=== PATIENT | male | born 1955 | race Caucasian/White ===

== ENCOUNTER → 2018-08-24 10:33 | Outpatient (CLI) | payer OTHER, SELFPAY ==
[2018-08-24 11:43] LABS: Add Manual Diff / Slide Review NO; Basophils Absolute Auto 0 /uL (0-100); Basophils Percent Auto 0.8 % (0-2); Eosinophils Absolute Auto 100 /uL (0-450); Eosinophils Percent Auto 1.5 % (2-4); Hemoglobin 14.1 g/dL (13.5-17.5); Lymphocytes Absolute Auto 1000 /uL (1100-4500); Lymphocytes Percent Auto 23.4 % (25-40); Mean Corpuscular HGB Conc 33.7 % (30-36); Mean Corpuscular Hemoglobin 31.4 PG (26-34); Mean Corpuscular Volume 93.4 fL (80-100); Monocytes Absolute Auto 400 /uL (0-900); Monocytes Percent Auto 9.6 % (3-14); Neutrophils Absolute Auto 2900 /uL (1500-7000); Neutrophils Percent Auto 64.7 % (50-75); Platelet Count 177 X10^3/uL (150-400); Red Cell Distribution Width 13.9 % (11.6-14.8); White Blood Cell Count 4.4 X10^3/uL (4.5-11.0)
[2018-08-24 12:01] LABS: Alanine Aminotransferase 31 IU/L (21-72); Albumin 4.3 g/dL (3.5-5.0); Albumin Globulin Ratio 1.8 (1.0-2.8); Alkaline Phosphatase 43 U/L (38-126); Aspartate Aminotransferase 30 IU/L (17-59); BUN Creatinine Ratio 17.8 (6-22); Bilirubin Total 0.7 mg/dL (0.2-1.3); Blood Urea Nitrogen 16 mg/dL (9-20); Calcium 9.4 mg/dL (8.4-10.2); Carbon Dioxide 29 mmol/L (22-32); Chloride 104 mmol/L (98-107); Cholesterol 192 mg/dL (140-199); Estimated Glomerular Filt Rate > 60.0 mL/min (>60); Globulin 2.4 g/dL (1.7-4.1); Glucose 99 mg/dL (80-110); HDL Cholesterol 79 mg/dL (40-60); HEMOLYSIS < 15 (0-50); LDL Cholesterol Calculated 106 mg/dL (<100); Potassium 4.9 mmol/L (3.4-5.1); Sodium 141 mmol/L (137-145); Total Protein 6.7 g/dL (6.3-8.2); Triglycerides 37 mg/dL (35-150)
[2018-08-24 12:31] LABS: Prostate Specific Antigen 4.11 ng/mL (0.10-4.00)
[2018-08-24 12:50] LABS: Hep C Virus Ab w/Reflex Quant NEGATIVE s/c (NEGATIVE)
== END ==
PROVIDERS: PCP Family Medicine; Visit Provider Family Medicine
DX: E78.5 Hyperlipidemia, unspecified (principal); I44.7 Left bundle-branch block, unspecified; N40.0 Benign prostatic hyperplasia without lower urinary tract symptoms; Z95.0 Presence of cardiac pacemaker; Z11.59 Encounter for screening for other viral diseases; Z91.89 Other specified personal risk factors, not elsewhere classified
CPT/HCPCS: 36415; 80053; 80061; 84153; 85025; 86803

== ENCOUNTER 2018-10-23 06:30 | Day surgery (SDC) | payer OTHER, SELFPAY ==
[2018-10-23] VITALS (11 sets, daily range): BP systolic 92–128; BP diastolic 57–81; PULSE 59–66; RESP 8–17; TEMP 36.2–36.6; O2SAT 91–99; BMI 23.4
[2018-10-23] MEDS: SODIUM CHLORIDE 0.9% 1,000 ML 100 ML IV (07:30)
--- NOTE | 2018-10-23 07:30 | PM.HP.1 ---
History of Present Illness Date Patient Seen: 10/23/18 Time Patient Seen: 07:30 Chief complaint: Routine screening colonoscopy Narrative: Patient here for routine screening colonoscopy Patient History Medical History (Updated 10/23/18 @ 07:32 by Wesly Kramer MD) Enlarged prostate (Acute) Former smoker (Acute) Impaired vision (Acute) Surgical History (Updated 07/19/17 @ 06:03 by Stephon Bettencourt MD) History of tonsillectomy Presence of cardiac pacemaker Status post hernia repair Family History (Updated 07/28/15 @ 00:00 by Conversion Provider) Father Cancer Social History marital status: household members: spouse Smoking Status: Former smoker (QUIT 1978) alcohol intake: current (2+ A DAY ) substance use type: does not use Family & Social History Family History (Updated 07/28/15 @ 00:00 by Conversion Provider) Father Cancer Tobacco & Substance use: Smoking Status Former smoker alcohol intake current Meds Home Medications Medication Instructions Recorded Confirmed Type No Known Home Medications 08/15/18 08/15/18 History Allergies Allergy/AdvReac Type Severity Reaction Status Date / Time No Known Drug Allergies Allergy Verified 10/23/18 07:14 Review of Systems Review of Systems All systems reviewed & are unremarkable except as noted in HPI and below Exam Narrative Exam Narrative: General adult male in no acute distress alert and oriented Chest clear to auscultation bilaterally Cardiac regular rate and rhythm Abdomen soft nontender nondistended Extremities warm and well-perfused Assessment & Plan (1) Colonoscopy planned: Current visit: Yes Status: Acute Assessment & Plan narrative: 63-year-old male here for routine screening colonoscopy
--- NOTE | 2018-10-23 07:33 | PM.PREOP ---
Pre-operative Note Interval Note History & Physical reviewed/Exam performed by Physician: Yes Changes to H&P: No ASA Class (for procedural sedation): II
--- NOTE | 2018-10-23 08:44 | PM.OP.ENDO ---
Operative Date/Time/Diagnoses Date of procedure: 10/23/18 Time of procedure: 08:44 Pre-op diagnosis: Routine screening no prior history Post-op diagnosis: same Procedure & Clinicians Study performed: colonoscopy Same procedure as scheduled: Yes Indications: routine screening no prior Surgeon: Wesly Kramer Procedure Notes SCOAP/Timeout: performed Procedure in detail: Rectal exam performed, normal prostate. Scope inserted into the rectum advanced through the descending colon at the transverse colon in the ascending colon. Ileal cecal valve reached. The scope carefully was withdrawn. Of findings were notable for diverticulosis. No polyps were observed. Patient tolerated procedure well. Scope withdrawal time: 8.5 min Sedation minutes: 45 Findings: diverticulosis and internal hemorrhoids Specimen(s): none sent Complications: none Recommendations: Colonscopy in 10 years Follow up: as needed Disposition: PACU
[2018-10-23] MEDS: MIDAZOLAM 5 MG/5 ML VIAL IV (09:18)
[2018-10-23] MEDS: fentaNYL 250 MCG/5 ML INJ IV (09:19)
--- NOTE | 2018-10-23 10:09 | SUR.PHASEII ---
1000 assumed care, patient awake, drowsy, talking with . Denies discomfort. Resp unlabored, VSS
--- NOTE | 2018-10-23 10:36 | SUR.PHASEII ---
1033 Arouses easily, denies pain or lightheadedness. VSS. preparing for discharge.
== END 2018-10-23 10:38 | disposition home or self-care (01) ==
PROVIDERS: PCP Family Medicine; Visit Provider Surgery
PROC: 0DJD8ZZ Inspection of Lower Intestinal Tract, Via Natural or Artificial Opening Endoscopic (ICD-10-PCS; CPT 45378; principal; 2018-10-23 07:45)
DX: Z12.11 Encounter for screening for malignant neoplasm of colon (principal); K57.30 Diverticulosis of large intestine without perforation or abscess without bleeding; K64.8 Other hemorrhoids; N40.0 Benign prostatic hyperplasia without lower urinary tract symptoms; Z87.891 Personal history of nicotine dependence
CPT/HCPCS: 45378; 99152; 99153; J2250; J3010

== ENCOUNTER → 2020-08-29 08:22 | Outpatient (CLI) | payer MEDICARE, OTHER, SELFPAY ==
[2020-08-29] MEDS: COVID-19 VACC, Ad26(JANSSEN)/PF 0.5 ML IM (08:26)
== END ==
PROVIDERS: PCP Family Medicine; Visit Provider Internal Medicine
DX: Z23 Encounter for immunization (principal)
CPT/HCPCS: 0031A; 91303

== ENCOUNTER → 2020-10-09 09:56 | Outpatient (CLI) | payer MEDICARE, OTHER, SELFPAY ==
[2020-10-09 10:53] LABS: Add Manual Diff / Slide Review NO; Basophils Absolute Auto 0 /uL (0-100); Basophils Percent Auto 0.8 % (0-2); Eosinophils Absolute Auto 100 /uL (0-450); Eosinophils Percent Auto 1.7 % (2-4); Hematocrit 46.3 % (41-53); Hemoglobin 15.8 g/dL (13.5-17.5); Lymphocytes Absolute Auto 1400 /uL (1100-4500); Lymphocytes Percent Auto 27.7 % (25-40); Mean Corpuscular HGB Conc 34.2 % (30-36); Mean Corpuscular Hemoglobin 32.1 PG (26-34); Mean Corpuscular Volume 93.9 fL (80-100); Monocytes Absolute Auto 400 /uL (0-900); Monocytes Percent Auto 8.7 % (3-14); Neutrophils Absolute Auto 3100 /uL (1500-7000); Neutrophils Percent Auto 61.1 % (50-75); Platelet Count 195 X10^3/uL (150-400); Red Blood Cell Count 4.93 X10^6/uL (4.5-5.9); White Blood Cell Count 5.1 X10^3/uL (4.5-11.0)
[2020-10-09 11:10] LABS: Alanine Aminotransferase 38 IU/L (<50); Albumin 4.5 g/dL (3.5-5.0); Albumin Globulin Ratio 1.7 (1.0-2.8); Alkaline Phosphatase 45 U/L (38-126); Aspartate Aminotransferase 37 IU/L (17-59); BUN Creatinine Ratio 14.9 (6-22); Bilirubin Total 0.5 mg/dL (0.2-1.3); Blood Urea Nitrogen 15 mg/dL (9-20); Calcium 9.6 mg/dL (8.4-10.2); Carbon Dioxide 29 mmol/L (22-32); Chloride 104 mmol/L (98-107); Cholesterol 240 mg/dL (140-199); Estimated Glomerular Filt Rate > 60.0 mL/min (>60); Globulin 2.7 g/dL (1.7-4.1); Glucose 104 mg/dL (80-110); HDL Cholesterol 76 mg/dL (40-60); HEMOLYSIS < 15 (0-50); LDL Cholesterol Calculated 143 mg/dL (<100); Potassium 4.7 mmol/L (3.4-5.1); Sodium 139 mmol/L (137-145); Total Protein 7.2 g/dL (6.3-8.2); Triglycerides 103 mg/dL (35-150)
[2020-10-09 11:37] LABS: TSH w/ Reflex to FT4 1.81 uIU/mL (0.47-4.68)
[2020-10-09 11:39] LABS: Prostate Specific Antigen Scrn 5.73 ng/mL (0.1-4.0)
== END ==
PROVIDERS: PCP Family Medicine; Referring Provider Family Medicine; Visit Provider Family Medicine
DX: E78.5 Hyperlipidemia, unspecified (principal); Z12.5 Encounter for screening for malignant neoplasm of prostate; I44.7 Left bundle-branch block, unspecified; I73.00 Raynaud's syndrome without gangrene; N40.0 Benign prostatic hyperplasia without lower urinary tract symptoms; Z95.0 Presence of cardiac pacemaker
CPT/HCPCS: 36415; 80053; 80061; 84443; 85025; G0103

== ENCOUNTER → 2021-02-02 09:20 | Outpatient (CLI) | payer MEDICARE, OTHER, SELFPAY ==
--- NOTE | 2021-02-02 | DI.NM.S_ITS ---
PROCEDURE: NM BONE SCAN WHOLE BODY RADIOPHARMACEUTICAL: 18.9 4 mCi Tc-99m MDP IV. INDICATIONS: PROSTATE CANCER TECHNIQUE: Delayed whole-body scintigrams were obtained approximately 3-4 hours after intravenous injection of radiotracer. Anterior and posterior views were acquired from vertex to feet. Additional left and right oblique views of the pelvis were obtained. COMPARISON: [facility], CT, CT CHEST ABD PEL W CON, 02/02/2021, 10:33. FINDINGS: Subtle focus of tracer uptake seen along the medial aspect of the right scapula however no definite correlate seen on the comparison CT images dated same day. Elsewhere, no suspicious tracer activity. Possible diffuse cervical tracer activity could be due to spondylosis. IMPRESSION: Subtle tracer uptake along the medial aspect of the right scapula however no definite correlate on the comparison anatomic imaging study. Recommend continued attention to this area on future surveillance studies. Elsewhere, no suspicious tracer activity Dictated by: Tavo Arrington M.D. on 02/02/2021 at 16:39 Approved by: Tavo Arrington M.D. on 02/02/2021 at 16:43
--- NOTE | 2021-02-02 10:28 | DI.CT.S_ITS ---
PROCEDURE: CT CHEST ABD PEL W CON INDICATIONS: PROSTATE CANCER TECHNIQUE: After the administration of oral and intravenous contrast, axial sections acquired from the supraclavicular neck to the pubic symphysis. Coronal and sagittal reformats were performed. For radiation dose reduction, the following was used: automated exposure control, adjustment of mA and/or kV according to patient size. COMPARISON: None. FINDINGS: Image quality: Excellent. CHEST: Lower Neck: No enlarged lymph nodes. Thyroid: Within normal limits. Axillae: No enlarged lymph nodes. Chest Wall: A left-sided pacer device can be seen. Lungs and Airways: No consolidation or suspicious nodules. Pleura: No pneumothorax or pleural effusions. Heart: Heart size is normal. No pericardial effusion. Moderate coronary artery calcification can be seen. Thoracic Vessels: The aorta and pulmonary arteries demonstrate normal size. Mediastinum and Gayle: No enlarged lymph nodes. Esophagus: No wall thickening. No hiatal hernia. ABDOMEN: Liver: Diffuse fatty liver infiltration is noted. Gallbladder: Unremarkable. Biliary ducts: Unremarkable. Pancreas: Unremarkable. Spleen: Unremarkable. Adrenal Glands: Unremarkable. Kidneys and Ureters: Unremarkable. Stomach and Bowel: Stomach, small bowel loops, and colon are unremarkable. A normal appendix is incidentally noted. Colonic diverticulosis is seen, without findings of active diverticulitis. Peritoneum: No abnormal intraperitoneal fluid. No free air. Ventral Wall: There is a minimal fat containing periumbilical hernia. Abdominal Nodes: No retroperitoneal or mesenteric adenopathy by size criteria. Vessels: Aorta and inferior vena cava are normal in size. PELVIS: Pelvic Organs: The prostate demonstrates normal size and enhance symmetrically. Bladder: Unremarkable. Pelvic Nodes: No enlarged lymph nodes. Miscellaneous: There is a fat containing right inguinal hernia seen. Bones: Scrutiny is given to sclerotic lesions within the bones. None can be seen. Degenerative changes are seen, which are overall most prominent involving the lumbar spine. IMPRESSION: No findings of metastatic disease are seen. Incidental note is made of: Left-sided pacer device Moderate coronary artery calcification Fatty liver infiltration Minimal fat containing periumbilical hernia Diverticulosis, without active diverticulitis Normal appendix Fat containing right inguinal hernia Dictated by: Russ Guerra M.D. on 02/02/2021 at 10:29 Approved by: Russ Guerra M.D. on 02/02/2021 at 10:34
== END ==
PROVIDERS: PCP Family Medicine; Referring Provider Urology; Visit Provider Urology
DX: C61 Malignant neoplasm of prostate (principal); I25.10 Atherosclerotic heart disease of native coronary artery without angina pectoris; K57.90 Diverticulosis of intestine, part unspecified, without perforation or abscess without bleeding; K40.90 Unilateral inguinal hernia, without obstruction or gangrene, not specified as recurrent; Z95.0 Presence of cardiac pacemaker
CPT/HCPCS: 71260; 74177; 78306; A9503

== ENCOUNTER → 2021-06-04 10:19 | Outpatient (CLI) | payer MEDICARE, OTHER, SELFPAY ==
[2021-06-04 11:57] LABS: Prostate Specific Antigen < 0.064 ng/mL (0.10-4.00)
== END ==
PROVIDERS: PCP Family Medicine; Referring Provider Nurse Practitioner Adult Health; Visit Provider Nurse Practitioner Adult Health
DX: C61 Malignant neoplasm of prostate (principal)
CPT/HCPCS: 36415; 84153

== ENCOUNTER → 2021-07-06 11:00 | Outpatient (CLI) | payer MEDICARE, OTHER, SELFPAY ==
[2021-07-06 12:44] LABS: Prostate Specific Antigen < 0.064 ng/mL (0.10-4.00)
== END ==
PROVIDERS: PCP Family Medicine; Referring Provider Nurse Practitioner Adult Health; Visit Provider Nurse Practitioner Adult Health
DX: C61 Malignant neoplasm of prostate (principal)
CPT/HCPCS: 36415; 84153

== ENCOUNTER → 2021-07-31 15:19 | Outpatient (CLI) | payer MEDICARE, OTHER, SELFPAY ==
[2021-07-31 16:15] LABS: Appearance Urine UA CLEAR; Bilirubin Urine UA NEGATIVE (NEGATIVE); Color Urine UA YELLOW; Glucose Urine UA NEGATIVE (Negative); Ketones Urine UA NEGATIVE (NEGATIVE); Leukocyte Esterase Urine UA NEGATIVE (NEGATIVE); Nitrite Urine UA NEGATIVE (Negative); Occult Blood Urine UA NEGATIVE (Negative); Protein Urine UA NEGATIVE (Negative); Specific Gravity Urine UA 1.015 (1.000-1.035); Urobilinogen Urine UA 0.2 E.U./dL (0.2)
[2021-07-31 16:31] LABS: Bacteria Urine None Seen; Culture Indicated Urine Cult Not Indicated; RBC Urine 0-1/HPF (0-5/HPF); Squamous Epithelial Cell Urine 0-1 /HPF (0-5/HPF); WBC Urine 0-1/HPF (0-5/HPF)
== END ==
PROVIDERS: PCP Family Medicine; Referring Provider Urology; Visit Provider Urology
DX: R39.15 Urgency of urination (principal)
CPT/HCPCS: 81001

== ENCOUNTER → 2021-11-10 11:53 | Outpatient (CLI) | payer MEDICARE, OTHER, SELFPAY ==
[2021-11-10 14:48] LABS: Prostate Specific Antigen < 0.064 ng/mL (0.10-4.00)
== END ==
PROVIDERS: PCP Family Medicine; Referring Provider Urology; Visit Provider Urology
DX: C61 Malignant neoplasm of prostate (principal)
CPT/HCPCS: 36415; 84153

== ENCOUNTER → 2022-05-12 13:32 | Outpatient (CLI) | payer MEDICARE, OTHER, SELFPAY ==
[2022-05-12 15:07] LABS: Prostate Specific Antigen < 0.064 ng/mL (0.10-4.00)
== END ==
PROVIDERS: PCP Family Medicine; Referring Provider Urology; Visit Provider Urology
DX: C61 Malignant neoplasm of prostate (principal)
CPT/HCPCS: 36415; 84153

== ENCOUNTER → 2022-09-22 07:46 | Outpatient (CLI) | payer MEDICARE, OTHER, SELFPAY ==
--- NOTE | 2022-09-22 | DI.US.S_ITS ---
PROCEDURE: US SCROTUM INDICATIONS: Scrotal pain TECHNIQUE: Real-time scanning was performed of the scrotum and testicles, with image documentation. Color and pulse Doppler interrogation was performed of both testicles. COMPARISON: None. FINDINGS: Right: Testicle is normal in size at 4.7 x 3.4 x 2.2 cm, and homogenous in echotexture. 2 mm echogenic focus present, likely a tiny calcification. Epididymal head and body are not well seen. Visualized Epididymis appears heterogeneous, possible changes of tubular ectasia. No varicocele visualized. A septated/complex hydrocele is present. Left: Testicle is normal in size at 3.6 x 3.2 x 1.9 cm, and homogeneous in echotexture. Epididymis appears heterogeneous, possible changes of tubular ectasia. Small epididymal head cysts present in aggregate measuring up to 5 mm. No varicocele visualized. A septated/complex hydrocele is present. Doppler: Color and pulse Doppler demonstrate normal and symmetric arterial flow in both testicles. IMPRESSION: 1. No evidence of testicular torsion. 2. Small complex hydroceles present bilaterally, nonspecific. Pyocele or hematocele possible in the appropriate clinical setting. 3. Right epididymal head and body are not well seen. The right epididymal tail appears heterogeneous, with a possible/equivocal mass present measuring 1.6 x 1.6 x 0.8 cm. This could also represent artifact. Changes of epididymitis considered less likely given absence of definitive increased vascularity on Doppler images but epididymitis cannot be excluded. Could consider follow-up ultrasound for re-evaluation of the right epididymis and for follow-up of the complex hydroceles, for example in 6-8 weeks or other interval at clinical discretion. Dictated by: Wilian Hyde M.D. on 09/22/2022 at 9:41 Approved by: Wilian Hyde M.D. on 09/22/2022 at 9:53
== END ==
PROVIDERS: PCP Family Medicine; Referring Provider Nurse Practitioner Family; Visit Provider Nurse Practitioner Family
DX: N50.82 Scrotal pain (principal); N43.3 Hydrocele, unspecified
CPT/HCPCS: 76870; 93975

== ENCOUNTER → 2022-12-09 12:58 | Outpatient (CLI) | payer MEDICARE, OTHER, SELFPAY ==
[2022-12-09 14:28] LABS: Prostate Specific Antigen < 0.064 ng/mL (0.10-4.00)
== END ==
PROVIDERS: PCP Family Medicine; Referring Provider Urology; Visit Provider Urology
DX: C61 Malignant neoplasm of prostate (principal)
CPT/HCPCS: 36415; 84153

== ENCOUNTER → 2023-04-05 08:27 | Outpatient (CLI) | payer MEDICARE, OTHER, SELFPAY ==
--- NOTE | 2023-04-05 08:28 | DI.RAD.S_ITS ---
PROCEDURE: XR HIP W PEL IF DONE LT 2V INDICATIONS: Low back pain left side; parasthesia L inguinal area TECHNIQUE: AP pelvis with lateral view(s) of the left hip(s). COMPARISON: None. FINDINGS: Bones: No fractures or dislocations. Pelvic ring appears intact. No suspicious bony lesions. Mild degenerative hip joint space narrowing. Soft tissues: The visualized bowel gas pattern is normal. No suspicious soft tissue calcifications. IMPRESSION: Mild arthritic changes within the hips bilaterally. Dictated by: Liv Covarrubias M.D. on 04/05/2023 at 10:45 Approved by: Liv Covarrubias M.D. on 04/05/2023 at 10:46
--- NOTE | 2023-04-05 08:28 | DI.RAD.S_ITS ---
PROCEDURE: XR LUMBAR SPINE 2-3V INDICATIONS: Low back pain left side; parasthesia L inguinal area TECHNIQUE: 3 views of the lumbar spine were acquired. COMPARISON: None. FINDINGS: Bones: 5 [id number] vertebrae are present. There is trace retrolisthesis of L5 on S1. Moderate disc and foraminal narrowing are present L5-S1. No vertebral body compression fractures. No suspicious bony lesions. Soft tissues: Overlying bowel gas pattern is normal. No suspicious soft tissue calcifications. IMPRESSION: Degenerative changes most prominent L5-S1. Dictated by: Liv Covarrubias M.D. on 04/05/2023 at 10:46 Approved by: Liv Covarrubias M.D. on 04/05/2023 at 10:46
[2023-04-05 09:13] LABS: Alanine Aminotransferase 33 IU/L (<50); Albumin 4.4 g/dL (3.5-5.0); Albumin Globulin Ratio 1.6 (1.0-2.8); Alkaline Phosphatase 43 U/L (38-126); Aspartate Aminotransferase 37 IU/L (17-59); BUN Creatinine Ratio 14.5 (6-22); Bilirubin Total 0.6 mg/dL (0.2-1.3); Blood Urea Nitrogen 17 mg/dL (9-20); Calcium 9.9 mg/dL (8.4-10.2); Carbon Dioxide 29 mmol/L (22-32); Chloride 101 mmol/L (98-107); Cholesterol 214 mg/dL (140-199); Estimated Glomerular Filt Rate > 60 mL/min (>60); Globulin 2.7 g/dL (1.7-4.1); Glucose 97 mg/dL (80-110); HDL Cholesterol 58 mg/dL (40-60); HEMOLYSIS < 15 (0-50); LDL Cholesterol Calculated 126 mg/dL (<100); Potassium 4.3 mmol/L (3.4-5.1); Sodium 138 mmol/L (137-145); Total Protein 7.1 g/dL (6.3-8.2); Triglycerides 148 mg/dL (35-150)
[2023-04-05 09:44] LABS: TSH w/ Reflex to FT4 1.88 uIU/mL (0.47-4.68)
== END ==
PROVIDERS: PCP Family Medicine; Referring Provider Physician Assistant; Visit Provider Physician Assistant
DX: R20.0 Anesthesia of skin (principal); M54.50 Low back pain, unspecified; M47.817 Spondylosis without myelopathy or radiculopathy, lumbosacral region; M47.816 Spondylosis without myelopathy or radiculopathy, lumbar region; I73.00 Raynaud's syndrome without gangrene; E78.5 Hyperlipidemia, unspecified; Z85.46 Personal history of malignant neoplasm of prostate
CPT/HCPCS: 36415; 72100; 73502; 80053; 80061; 84443

== ENCOUNTER 2023-12-24 13:59 | Emergency (ER) | payer MEDICARE, OTHER, SELFPAY ==
[2023-12-24 14:15] VITALS: BP 132/76; PULSE 66; RESP 16; TEMP 36.6; O2SAT 96; BMI 22.5
--- NOTE | 2023-12-24 15:19 | ED_ITS ---
HPI - Wound/Laceration <Campbell Singh PA-C - Last Filed: 12/24/23 15:27> General Chief Complaint: Wound/Laceration Stated Complaint: left forearm laceration Time Seen by Provider: 12/24/23 14:24 Source: patient Mode of arrival: Ambulatory History of Present Illness HPI narrative: This patient is a pleasant 68-year-old male that was sharpening a knife at home when the blade that he was sharpening accidentally made contact with the dorsal aspect of the left distal forearm. There was bleeding immediately at the time of the injury but this has since resolved. He states that his last tetanus was over 10 years ago. Patient also denies foreign body sensation, numbness or tingling distally or decreased range of motion of the wrist or digits of the left hand. No treatments have been tried for this. Injury occurred just prior to his arrival at home. Related Data Home Medications Medication Instructions Recorded Confirmed latanoprost 0.005 % eye drops drp EYE-BOTH DAILY Glaucoma 03/30/23 03/30/23 Candidate Allergies Allergy/AdvReac Type Severity Reaction Status Date / Time No Known Drug Allergies Allergy Verified 12/24/23 14:15 Review of Systems <Campbell Singh PA-C - Last Filed: 12/24/23 15:27> Review of Systems Narrative: General: See HPI Integumentary: See HPI All other review of systems have been reviewed and ultimately negative unless otherwise stated in the HPI. Patient History <Campbell Singh PA-C - Last Filed: 12/24/23 15:27> Medical History Sick sinus syndrome Elevated PSA Former smoker Enlarged prostate Impaired vision Surgical History History of colonoscopy Presence of cardiac pacemaker Status post hernia repair History of tonsillectomy Family History Father Cancer Social History marital status: household members: spouse Smoking Status: Former smoker alcohol intake: current (2+ A DAY ) substance use type: does not use Smoking Status: Former smoker Substance Use Type: does not use Exam <DONNA Mata Last Filed: 12/24/23 15:27> Initial Vital Signs Initial Vital Signs: Vital Signs Temperature 97.8 F 12/24/23 14:15 Pulse Rate 66 12/24/23 14:15 Respiratory Rate 16 12/24/23 14:15 Blood Pressure 132/76 12/24/23 14:15 Pulse Oximetry 96 12/24/23 14:15 Oxygen Delivery Method Room Air 12/24/23 14:15 Const General: cooperative, healthy appearing, comfortable, well developed and well groomed HENNE Head: normal to inspection Ears: hearing grossly normal bilaterally and external ears normal Nose: external nose normal and nares normal Face and sinus: normal facial exam Eyes General: Yes appearance normal, both eyes and all related structures Neck Neck: normal visual inspection, full ROM and no meningeal signs Resp Effort & Inspection: normal respiratory effort and able to speak in complete sentences Auscultation: clear to auscultation bilaterally Cardio Rate: regular rate Rhythm: regular rhythm Heart Sounds: S1 normal and S2 normal Back/Spine/Pelvis Back: normal to inspection Skin Other: Patient has a 4 cm laceration that is linear in nature. This is located over the dorsal aspect of the left forearm. No visible foreign body. No active bleeding. This will require suture repair. Neuro General: patient alert, patient awake, patient oriented x3, gait normal and moves all extremities Extrem General: full ROM, capillary refill normal, normal exam except as noted, no joint enlargement and no clubbing, cyanosis or edema Psych Appearance: grossly normal and well kempt Mental Status: mental status grossly normal Speech and Movement: speech and movement normal Mood: congruent mood <Yareli Clay DO - Last Filed: 12/25/23 07:56> Initial Vital Signs Initial Vital Signs: Vital Signs Temperature 97.8 F 12/24/23 14:15 Pulse Rate 66 12/24/23 14:15 Respiratory Rate 16 12/24/23 14:15 Blood Pressure 132/76 12/24/23 14:15 Pulse Oximetry 96 12/24/23 14:15 Oxygen Delivery Method Room Air 12/24/23 14:15 Procedures <Campbell Singh PA-C - Last Filed: 12/24/23 15:27> [facility] [place] Procedure Name of Procedure: Laceration repair Location: Left forearm Technique/Description of procedure performed: The wound was vigorously irrigated with normal saline and Hibiclens by nursing staff. Anesthesia was obtained by myself using 8 cc of lidocaine 1% without epinephrine. Once anesthesia was obtained, I placed 5 4-0 Ethilon sutures unusual interrupted fashion with good approximation. Patient tolerated procedure well. There was no blood loss. The wound was then covered with a sterile, nonstick, dry dressing and the patient was prepped for discharge home. Prior to discharge, the patient did receive an updated tetanus immunization. Patient tolerated procedure: Well Complications: none Course <Campbell Singh PA-C - Last Filed: 12/24/23 15:27> Course Course Narrative: Patient was seen and examined. He underwent suture repair as previously stated. Patient was then prepped for discharge home. Orders Ordered: Discontinued Medications Bacitracin (Bacitracin Oint 0.9 Gm Pckt) 1 applic TOP NOW ONE Stop: 12/24/23 15:18 Last Admin: 12/24/23 15:29 Dose: 1 applic Documented By: ABRAHAN Diphtheria/Tetanus/Acell Pertussis (Tet,Diph,Pertuss(Acell),Vac/Pf 0.5 Ml Syringe) 0.5 ml IM .ONCE ONE Stop: 12/24/23 15:22 Last Admin: 12/24/23 15:29 Dose: 0.5 ml Documented By: ABRAHAN Lidocaine HCl (Lidocaine 1% 20 Ml) 20 ml INJ INTRA-OP ONE Stop: 12/24/23 15:04 Last Admin: 12/24/23 15:28 Dose: 20 ml Documented By: ABRAHAN Vital Signs Vital signs: Vital Signs - 8 hr 12/24/23 14:15 Temperature 97.8 F Pulse Rate 66 Respiratory Rate 16 Blood Pressure 132/76 Pulse Oximetry 96 Oxygen Delivery Method Room Air <Yareli Clay DO - Last Filed: 12/25/23 07:56> Orders Ordered: Discontinued Medications Bacitracin (Bacitracin Oint 0.9 Gm Pckt) 1 applic TOP NOW ONE Stop: 12/24/23 15:18 Last Admin: 12/24/23 15:29 Dose: 1 applic Documented By: RLS Diphtheria/Tetanus/Acell Pertussis (Tet,Diph,Pertuss(Acell),Vac/Pf 0.5 Ml Syringe) 0.5 ml IM .ONCE ONE Stop: 12/24/23 15:22 Last Admin: 12/24/23 15:29 Dose: 0.5 ml Documented By: ABRAHAN Lidocaine HCl (Lidocaine 1% 20 Ml) 20 ml INJ INTRA-OP ONE Stop: 12/24/23 15:04 Last Admin: 12/24/23 15:28 Dose: 20 ml Documented By: ABRAHAN Vital Signs Vital signs: Vital Signs - 8 hr 12/24/23 14:15 Temperature 97.8 F Pulse Rate 66 Respiratory Rate 16 Blood Pressure 132/76 Pulse Oximetry 96 Oxygen Delivery Method Room Air MDM - Wound/Laceration <Campbell Singh PA-C - Last Filed: 12/24/23 15:27> Differential Diagnosis Differential diagnosis: Likely laceration, abrasion and avulsion of skin Medical Records Attestation: I reviewed the patient's medical records. MDM Narrative Medical decision making narrative: At this time, this is a 68-year-old male that sustained an accidental laceration to the dorsal aspect of the left forearm. This required suture repair. I do not believe he sustained any type of neurovascular injury. He has full range of motion of the wrist and digits of the left hand. Pulses are intact distally as well. I do not believe there is any retained foreign body in the laceration. He appears clinically stable for outpatient follow up. Patient understands the treatment plan. There are no additional questions at the time of discharge and he will follow up as requested. Discharge Plan Departure Patient Disposition: Home Clinical Impression: Laceration of forearm Qualifiers: Encounter type: initial encounter Laterality: left Qualified Code(s): S51.812A - Laceration without foreign body of left forearm, initial encounter Instructions: DI for Laceration Repair Activity Restrictions/Additional Instructions: Keep the affected area clean, covered and dry Have the sutures removed in 10 days by your primary care provider or our walk-in clinic Return here immediately if worse or for any new, emergent conditions Prescriptions: No Action latanoprost 0.005 % drops EYE-BOTH DAILY Referrals: Mismagdaaneous,Doctor, MD [Primary Care Provider] - Stand Alone Forms: Patient Portal/API ED Sign-out <Yareli Clay DO - Last Filed: 12/25/23 07:56> Cosign ED Attending Cosignature Attestation: I was available for consultation.
[2023-12-24] MEDS: LIDOCAINE 1% 20 ML INJ (15:28)
[2023-12-24] MEDS: BACITRACIN OINT 0.9 GM PCKT 1 APPLIC TOP (15:29)
[2023-12-24] MEDS: TET,DIPH,PERTUSS(ACELL),VAC/PF 0.5 ML SYRINGE IM (15:29)
== END 2023-12-24 15:45 | disposition home or self-care (01) ==
PROVIDERS: Emergency Provider Physician Assistant
DX: S51.812A Laceration without foreign body of left forearm, initial encounter (principal); W26.0XXA Contact with knife, initial encounter; Z23 Encounter for immunization
CPT/HCPCS: 12002; 90471; 99283; 99284; 90715